=== PATIENT | male | born 1955 | race Caucasian/White ===

== ENCOUNTER 2016-05-18 09:16 | Day surgery (SDC) | payer OTHER ==
[2016-05-18] MEDS ORDERED: MIDAZOLAM HCL 2MG/2ML VIAL IV ONE (14:00)
[2016-05-18] MEDS ORDERED: PROPOFOL 10 MG/ML VIAL IV ONE (14:00)
[2016-05-18] MEDS ORDERED: LIDOCAINE 2% MDV (20MG/ML) 20ML VIAL IV ONE (14:00)
--- NOTE | 2016-05-22 11:05 | Operative Note ---
DATE OF SURGERY: 05/18/2016. REFERRING PHYSICIANS: Javier Guthrie D.O., and Dr. Jo Cabello D.O. PROCEDURE: Colonoscopy to the cecum with cold-snare polypectomy times one and sigmoid colon biopsies. INDICATION: A history of adenomatous polyps. The patient returns at this time for surveillance. He is also complaining of intermittent bright red rectal bleeding. ANESTHESIA: Intravenous sedation was administered by the Department of Anesthesiology and included Diprivan titrated to effect. PROCEDURE: Following informed consent from this alert individual, including a discussion of the risks and benefits of the procedure and an opportunity for the patient to ask questions, the patient was in the left lateral decubitus position. A digital rectal examination was performed. No abnormalities were noted. Following this, the Olympus PCF-180 video colonoscope was inserted into the rectum without resistance. The rectal mucosa had a normal appearance with normal folds and distensibility. The sigmoid colon demonstrated some focal areas of edema with erythema with spasm. I could not definitively see diverticulosis. However, ruling out small diverticula was difficult. The inflamed area extended only about 5.0 cm in length. The remainder of the colon was endoscopically unremarkable except for a 4.0 mm polyp which was noted in the descending colon. This was removed with cold-snare polypectomy. The cecum was defined by noting the appendiceal orifice and ileocecal valve. The colon preparation was good. Retroflexion was accomplished in the cecal region and failed to demonstrate changes. From the base of the cecum, the colonoscope was then withdrawn. Again, the only abnormality upon withdrawal was a focal area of erythema in the sigmoid region. No other changes were noted. No additional polyps were seen. Retroflexion in the rectum demonstrated small to moderate sized internal hemorrhoids which appeared somewhat friable. The endoscope was straightened and removed. The patient tolerated the procedure well and was returned to the recovery area in stable condition. IMPRESSION: 1. A 4.0 to 5.0 mm descending colon polyp removed with cold-snare polypectomy. 2. A focal area extending less than 5.0 cm in length in the sigmoid colon with erythema and edema. Biopsies were taken. 3. Small to moderate sized internal hemorrhoids. RECOMMENDATIONS: The patient was advised to use Preparation-H or other hemorrhoidal creams as needed. Further recommendations may be forthcoming pending the results of the biopsy obtained today. Follow up will be with Dr. Jo Cabello and Dr. Javier Guthrie. SHANTEL ROBERTS D.O. Date Time JOB NUMBER: [id number] cc: Odette Peck Dr., D.O. MTDD
== END 2016-05-18 11:57 | disposition home or self-care (01) ==
LOC: HOP 09:16
PROVIDERS: ATTEND Internal Medicine Gastroenterology
DX: Z09 Encounter for follow-up examination after completed treatment for conditions other than malignant neoplasm (principal); D12.4 Benign neoplasm of descending colon; K64.8 Other hemorrhoids; E78.00 Pure hypercholesterolemia, unspecified